=== PATIENT | male | born 1975 | race Caucasian/White ===

== ENCOUNTER 2021-10-01 14:23 | Inpatient (IN) | payer MEDICAID, SELFPAY ==
[2021-10-01 14:24] VITALS: BP 131/85; PULSE 55; RESP 14; TEMP 36.6; O2SAT 97; BMI 20.9
--- NOTE | 2021-10-01 14:45 | ED.RN ---
Educated patient that if he and his (in another room also here to detox) will not be able to have any contact with one another when admitted.
--- NOTE | 2021-10-01 15:00 | EDS_ITS ---
HPI History of Present Illness Chief Complaint: Substance Abuse Informant: patient and parent Narrative Narrative: 46-year-old male states he is coming to the hospital today requesting detox from opiates. He typically snorts heroin/fentanyl. He states that his mother has custody of their 4 children. His is also here seeking detox. He states that they were present up to about a year ago but he does not have any pending legal issues. He states that he has been working with [facility]. He last used approximately 48 hours ago. He was under the impression that he would go from here directly to inpatient but there appears to be a potential for 2-day gap and he is not sure if he wants to stay down. PFSH PFSH Allergy/AdvReac Type Severity Reaction Status Date / Time No Known Allergies Allergy Verified 10/01/21 14:26 Surgical History (Updated 10/01/21 @ 15:[address] Shelton Elizalde DO) History of back surgery History of neck surgery Social History (Updated 10/01/21 @ 15:[address] Shelton Elizalde DO) Smoking Status: Current every day smoker tobacco type: cigarettes substance use type: heroin ROS ROS ED Constitutional Constitutional ED: Denies chills or weight loss Eyes Eyes: Denies change in vision or diplopia ENT ENT ED: Denies ear pain, rhinorrhea or sore throat Cardiovascular Cardiovascular: Denies chest pain, orthopnea, palpitations or racing heartbeat Respiratory/Chest Respiratory/Chest: Denies cough, dyspnea or orthopnea Gastrointestinal Gastrointestinal: Denies abdominal pain, diarrhea, nausea or vomiting Genitourinary Genitourinary ED: Denies dysuria, hematuria or urinary frequency Musculoskeletal Musculoskeletal: Denies arthralgias or myalgias Integumentary Denies abscess or rash Neurologic Neurologic: Denies headache(s) or weakness Psychiatric Psychiatric: Denies anxiety, depression, suicidal ideation or suicidal thoughts Endocrine Endocrinology: Denies polydipsia, polyphagia or polyuria Allergic/Immunologic Allergic/Immunologic ED: Denies mouth swelling, tongue swelling or urticaria EXAM Physical Exam Const Vital Signs: 10/01/21 14:24 Temperature 97.8 F Temperature Source Temporal Pulse Rate 55 L Respiratory Rate 14 Blood Pressure 131/85 H Blood Pressure Mean 100 Pulse Ox 97 Oxygen Delivery Method Room Air Positive well nourished and well developed General Appearance ED: well developed HEENT Reports normocephalic, head/scalp atraumatic and moist mucous membranes Eyes PERRL and EOMs intact bilaterally Neck no lymphadenopathy, supple and no JVD Resp normal respiratory effort and clear to auscultation bilaterally Cardio regular rate, regular rhythm and no murmurs GI normal to inspection, nondistended, normoactive bowel sounds and non-tender Palpation: soft Back/Spine no CVA tenderness and normal ROM Extremity normal to inspection General Extremety ED: Negative for edema General Extremity: Negative for edema Neuro oriented x3 and CN's II-XII intact bilaterally Sensorium / Orientation: alert Motor Exam: strength 5/5 throughout Psych mental status grossly normal Mood & Affect: Negative for depressed or tearful Skin no rashes or lesions noted and no wounds MDM MDM MDM Narrative Medical decision making narrative: Patient decided that he will stay for detox. He decided this after he left his room and went to smoke a cigarette he was informed that he would not be going outside anymore and smoking that if he does not wish to stay in his room that somebody else who is in the waiting room would be happy to take his room. I will speak with the hospitalist regarding admission Lab Data Attestation: I reviewed the patient's lab results. Labs: Laboratory Results - last 24 hr 10/01/21 10/01/21 10/01/21 15:13 15:13 15:13 WBC 7.2 RBC 4.69 Hgb 13.3 Hct 41.7 MCV 88.9 MCH 28.4 MCHC 31.9 L RDW Std Deviation 43.8 RDW Coeff of Cece 13.6 Plt Count 213 MPV 10.0 Immature Gran % (Auto) 0.100 Neut % (Auto) 68.0 Lymph % (Auto) 23.5 [place] % (Auto) 7.0 Eos % (Auto) 0.8 Baso % (Auto) 0.6 Absolute Neuts (auto) 4.9 Absolute Lymphs (auto) 1.68 Nucleated RBC % 0 Sodium 139 Potassium 3.6 Chloride 106 Carbon Dioxide 31.0 Anion Gap 2 L BUN 13 Creatinine 0.98 Estim Creat Clear Calc 79.39 Est GFR (MDRD) Af Amer 106 Est GFR (MDRD) Non-Af 88 BUN/Creatinine Ratio 13.2 Glucose 119 H Calcium 9.1 Total Bilirubin 0.40 AST 53 H ALT 145 H Alkaline Phosphatase 73 Total Protein 7.2 Albumin 3.7 Globulin 3.5 Albumin/Globulin Ratio 1.1 Ethyl Alcohol 4.0 Discharge Plan Dx/Rx/DC Orders Clinical Impression: Opiate addiction Disposition Disposition: Acute Care Hospital [facility]
--- NOTE | 2021-10-01 15:16 | PCM.HP.STD ---
HPI - General General Date of Admission: 10/01/21 HPI Narrative VIANNEY DOTSON, is a 46 M who presents to the hospital requesting opiate detox. He denies injecting heroin but he does snort heroin and fentanyl. His last use was approximately 48 hours ago. He has been working with [facility] on an outpatient basis and he does seem interested in terms of going to an inpatient rehab once he completes detox. He denies any legal issues however his mother has custody of his 4 children and his is also here requesting detox currently. [facility] Allergy/AdvReac Type Severity Reaction Status Date / Time No Known Allergies Allergy Verified 10/01/21 14:26 Family History no significant family his no significant family history Surgical History (Updated 10/01/21 @ 15:[address] Shelton Elizalde DO) History of back surgery History of neck surgery Social History (Updated 10/01/21 @ 15:[address] Shelton Elizalde DO) Smoking Status: Current every day smoker tobacco type: cigarettes substance use type: heroin ROS Constitutional Constitutional: Denies chills, fatigue, fever(s) or malaise Eyes Eyes: Denies blurry vision ENT HEENT: Denies headache(s) or nasal discharge Cardiovascular Cardiovascular: Denies chest pain, dyspnea on exertion or syncope Respiratory/Chest Respiratory/Chest: Denies cough, shortness of breath at rest or shortness of breath with exertion Gastrointestinal Gastrointestinal: Denies constipation, diarrhea, nausea or vomiting Genitourinary Genitourinary: Denies dysuria Neurologic Neurologic: Denies focal weakness, numbness or tremor(s) Psychiatric Psychiatric: Denies anxiety or depression Vital Signs Vital Signs Vital Signs: 10/01/21 14:24 Temperature 97.8 F Temperature Source Temporal Pulse Rate 55 L Respiratory Rate 14 Blood Pressure 131/85 H Blood Pressure Mean 100 Pulse Ox 97 Oxygen Delivery Method Room Air Weight Weight: 130 lb Body Mass Index (BMI) 20.9 Physical Exam Narrative General: Alert, Oriented x3, Cooperative, No apparent distress HEENT: Atraumatic, PERRLA, EOMI, Normocephalic Oral: Moist Mucosa Neck: Supple, No JVD Lungs: Clear to auscultation, Normal air movement, No rhonchi, No wheeze, No rales Cardiovascular: Regular rate, Regular Rhythm, Normal S1, Normal S2, No murmurs Abdomen: Soft, Non Tender, Non-Distended, No Hepato-splenomegaly Extremities: No edema, Capillary Refill Less than 3 Seconds Skin: No rashes, No breakdown Musculoskeletal: No Tenderness to Palpation of Joints or Extremities Neurological: Cranial nerves II-XII grossly intact, Motor Exam 5/5 strength throughout, Sensory exam intact to light touch and pain Psych/Mental Status: Normal Affect, Appropriate Results Lab / Micro Data Result Diagrams: 10/01/21 15:13 10/01/21 15:13 Assessment & Plan Assessment/Plan (1) Opiate addiction: PLAN: Plan 1. Acute opiate withdrawal/tobacco abuse ? Continue with the opiate withdrawal protocol ? We will have him follow-up with [facility] for potential inpatient placement ? Discussed cessation, will place him on nicotine patch DVT: Ambulation Charges/Coding Visit Charges Inpatient E&M: 65114 Init Hosp L2
--- NOTE | 2021-10-01 15:22 | NURSING ---
MED SURG OPIATE ADDICTION LING
[2021-10-01 15:26] LABS: Absolute Lymphocyte Count 1.68 X10^3/uL (0.83-4.51); Absolute Neutrophil Count 4.9 X10^3/uL (2.0-7.7); Basophil# 0.04 X10^3/uL; Basophil% 0.6 % (0-1); Eosinophil# 0.06 X10^3/uL; Eosinophils% 0.8 % (0-5); Hematocrit 41.7 % (40-54); Hemoglobin 13.3 g/dL (13.0-16.5); Lymphocyte # 1.68 X10^3/ul (0.83-4.51); Lymphocyte % 23.5 % (19-41); Mean Corp Hgb Conc 31.9 g/dL (32-36); Mean Corpuscular Hgb 28.4 pg (27.0-32.0); Mean Corpuscular Volume 88.9 fL (80-94); NRBC Flagged by Analyzer 0 % (0-5); Neutrophil # 4.86 X10^3/uL (2.7-7.7); Platelet Count 213 K/mm3 (150-450); RBC Distribution Width CV 13.6 % (11.6-14.6); RBC Distribution Width SD 43.8 fl (35.1-43.9); Red Blood Count 4.69 M/mm3 (4.6-6.2); White Blood Count 7.2 K/mm3 (4.4-11.0)
[2021-10-01 15:39] VITALS: BP 131/85; PULSE 55; RESP 14; TEMP 36.6; O2SAT 97
[2021-10-01 15:44] LABS: ALB/GLOB Ratio 1.1 RATIO (0.9-2.4); AST(SGOT) 53 U/L (15-37); Alanine Aminotransfer ALT/SGPT 145 U/L (16-61); Albumin, Serum 3.7 g/dL (3.2-5.0); Alkaline Phosphatase 73 U/L (45-117); Anion Gap 2 (5-15); BUN 13 mg/dL (7-18); BUN/Creat Ratio 13.2 RATIO (10-20); Calcium,Total 9.1 mg/dL (8.5-10.1); Chloride 106 mmol/L (98-107); Creatinine, Serum 0.98 mg/dL (0.70-1.30); EST Glomerular Filtration Rate 88 mL/min (>60); Est Glom Filt Rate - Afr Amer 106 mL/min (>60); Estimated Creatinine Clearance 79.39 ml/min; Globulin 3.5 g/dL (2.2-4.2); Glucose 119 mg/dL (74-106); Potassium 3.6 mmol/L (3.5-5.1); Protein, Total 7.2 g/dL (6.4-8.2); Sodium Level 139 mmol/L (136-145)
[2021-10-01 16:17] LABS: Amphetamine Urine VISTA NEGATIVE (<1000 ng/mL); Barbiturate Urine VISTA NEGATIVE (< 200 ng/mL); Benzodiazepine Urine VISTA NEGATIVE (< 200 ng/mL); Cocaine Urine VISTA POSITIVE (< 300 ng/mL); Ecstacy Urine VISTA POSITIVE (< 500 ng/mL); Methadone Urine VISTA NEGATIVE (< 300 ng/mL); PCP Urine VISTA NEGATIVE (< 25 ng/mL); THC Urine VISTA POSITIVE (< 50 ng/mL); Vista UDS pH Range 4
[2021-10-01 17:04] VITALS: BMI 20.5
[2021-10-01 17:46] VITALS: PULSE 50; O2SAT 95
[2021-10-01 17:51] VITALS: BP 130/86; PULSE 48; RESP 16; TEMP 36.5; O2SAT 95
[2021-10-01 22:46] VITALS: BP 128/86; PULSE 52; RESP 16; TEMP 36.7; O2SAT 96
[2021-10-02 06:12] VITALS: BP 128/87; PULSE 56; RESP 16; TEMP 36.7; O2SAT 94
[2021-10-02] MEDS: Gabapentin 300 MG Capsule PO ×2 (09:56→17:50)
[2021-10-02] MEDS: Methocarbamol 750 MG Tablet 1500 MG PO ×2 (10:01→16:33)
[2021-10-02] MEDS: hydrOXYzine PAM 25 MG Capsule 50 MG PO ×2 (10:02→16:33)
[2021-10-02] MEDS: Buprenorphine HCl 2 MG TAB.SUBL SL ×2 (10:19→17:50)
[2021-10-02] MEDS: cloNIDine HCl 0.1 MG Tablet PO (14:31)
[2021-10-02 15:48] VITALS: BP 123/71; PULSE 81; RESP 16; TEMP 37.2; O2SAT 95
[2021-10-02 18:00] VITALS: BP 112/82; PULSE 76; RESP 16; TEMP 36.8; O2SAT 96
--- NOTE | 2021-10-02 18:28 | PCM.PN.HOSP ---
Subjective Subjective Patient was seen and examined today, he requested that his Neurontin be changed to 400 mg 3 times daily-he states he takes this dosage at home. Patient is having some muscle cramping, otherwise he has no complaints of any nausea, vomiting, or diarrhea. Objective Data Objective Data Vital Signs: Vital Signs Temp Pulse Resp BP Pulse Ox O2 Del Method 98.3 F 76 16 112/82 H 96 Room Air 10/02/21 18:00 10/02/21 18:00 10/02/21 18:00 10/02/21 18:00 10/02/21 18:00 10/02/21 18:00 Oxygen Delivery Method Room Air Weight: 57.606 kg Body Mass Index (BMI) 20.5 Intake & Output: Intake and Output for Last 24 Hours 09/30/21 10/01/21 10/02/21 23:59 23:59 23:59 Intake Total 200 / 200 360 / 360 Balance 200 / 200 360 / 360 Lab / Micro Data Result Diagrams: 10/01/21 15:13 10/01/21 15:13 Physical Exam Const alert, oriented x3, no apparent distress and healthy appearing General Appearance: cooperative, well kempt and well developed Orientation / Consciousness: awake, oriented to person, oriented to place and oriented to time HEENT normocephalic and moist oral mucous membranes Eyes PERRL, EOMs intact bilaterally and conjunctivae normal Neck supple, no JVD, thyroid normal and no carotid bruits General: trachea midline Resp normal respiratory effort, no retractions, no use of accessory muscles and clear to auscultation bilaterally Auscultation: Negative for rales, rhonchi or wheezes Cardio regular rate, regular rhythm, S1 normal heart sound, S2 normal heart sound, no murmurs, no rub and no gallops GI normal to inspection, nondistended, normoactive bowel sounds, soft to palpation, non-tender and non-distended Extremity normal to inspection and no clubbing, cyanosis or edema Skin no rashes or lesions noted General Skin Exam: no breakdown Neuro oriented x3, CN's II-XII intact bilaterally, moves all extremities, no focal motor deficits and no sensory deficits noted Sensorium / Orientation: awake, alert, oriented to person, oriented to place and oriented to time Speech: speech normal Psych affect normal Assessment & Plan Assessment/Plan (1) Opiate addiction: PLAN: Plan 1. Acute opiate withdrawal-continue present medications, as needed medications #2 restless legs-I will increase patient's Neurontin which she uses for restless legs #3 chronic opiate addiction-complicates recovery, care, and prognosis. Charges/Coding Visit Charges Inpatient E&M: 89363 Subs Hosp L2
[2021-10-02] MEDS: Gabapentin 100 MG Capsule PO (18:36)
[2021-10-02 22:11] VITALS: BP 109/74; PULSE 55; RESP 18; TEMP 36.6; O2SAT 95
[2021-10-03] MEDS: Buprenorphine HCl 2 MG TAB.SUBL SL ×3 (01:54→18:39)
[2021-10-03 04:30] VITALS: BP 99/65; PULSE 51; RESP 18; TEMP 36.6; O2SAT 95
[2021-10-03] MEDS: Gabapentin 400 MG Capsule PO ×3 (08:18→18:39)
[2021-10-03 08:25] VITALS: BP 121/84; PULSE 64; RESP 16; TEMP 36.7; O2SAT 98
[2021-10-03] MEDS: cloNIDine HCl 0.1 MG Tablet PO (10:21)
[2021-10-03] MEDS: Methocarbamol 750 MG Tablet 1500 MG PO (10:21)
[2021-10-03] MEDS: hydrOXYzine PAM 25 MG Capsule 50 MG PO (10:21)
[2021-10-03] MEDS: Acetaminophen 325 MG Tablet 650 MG PO (12:31)
--- NOTE | 2021-10-03 18:14 | PCM.PN.HOSP ---
Subjective Subjective Patient was seen and examined today, he appears comfortable, he is not anxious or tremorous. Patient states he is due to go into an inpatient detox center tomorrow after discharge from the hospital. Objective Data Objective Data Vital Signs: Vital Signs Temp Pulse Resp BP Pulse Ox O2 Del Method 98.0 F 64 16 121/84 H 98 Room Air 10/03/21 08:25 10/03/21 08:25 10/03/21 08:25 10/03/21 08:25 10/03/21 08:25 10/03/21 08:25 Oxygen Delivery Method Room Air Weight: 57.606 kg Body Mass Index (BMI) 20.5 Intake & Output: Intake and Output for Last 24 Hours 10/01/21 10/02/21 10/03/21 23:59 23:59 23:59 Intake Total 200 / 200 360 / 580 660 / 660 Balance 200 / 200 360 / 580 660 / 660 Lab / Micro Data Result Diagrams: 10/01/21 15:13 10/01/21 15:13 Physical Exam Narrative General: Alert, Oriented x3, Cooperative, No apparent distress HEENT: Atraumatic, PERRLA, EOMI, Normocephalic Oral: Moist Mucosa Neck: Supple, No JVD Lungs: Clear to auscultation, Normal air movement, No rhonchi, No wheeze, No rales Cardiovascular: Regular rate, Regular Rhythm, Normal S1, Normal S2, No murmurs Abdomen: Soft, Non Tender, Non-Distended, No Hepato-splenomegaly Extremities: No edema, Capillary Refill Less than 3 Seconds Skin: No rashes, No breakdown Musculoskeletal: No Tenderness to Palpation of Joints or Extremities Neurological: Cranial nerves II-XII grossly intact, Motor Exam 5/5 strength throughout, Sensory exam intact to light touch and pain Psych/Mental Status: Normal Affect, Appropriate Const alert, oriented x3, no apparent distress and healthy appearing General Appearance: cooperative, well kempt and well developed Orientation / Consciousness: awake, oriented to person, oriented to place and oriented to time HEENT normocephalic, head/scalp atraumatic and moist oral mucous membranes Eyes PERRL, EOMs intact bilaterally and conjunctivae normal Neck supple, no JVD, thyroid normal and no carotid bruits General: trachea midline Resp normal respiratory effort, no retractions, no use of accessory muscles and clear to auscultation bilaterally Auscultation: Negative for rales, rhonchi or wheezes Cardio regular rate, regular rhythm, S1 normal heart sound, S2 normal heart sound, no murmurs, no rub and no gallops GI normal to inspection, nondistended, normoactive bowel sounds, soft to palpation, non-tender and non-distended Extremity no clubbing, cyanosis or edema Skin no rashes or lesions noted General Skin Exam: no breakdown Neuro oriented x3, CN's II-XII intact bilaterally, no focal motor deficits and no sensory deficits noted Sensorium / Orientation: awake and alert Speech: speech normal Psych affect normal Assessment & Plan Assessment/Plan (1) Opiate addiction: PLAN: Plan 1. Acute opiate withdrawal-continue present medications, as needed medications #2 restless legs-patient is on Neurontin #3 chronic opiate addiction-complicates recovery, care, and prognosis. Charges/Coding Visit Charges Inpatient E&M: 42879 Subs Hosp L2
[2021-10-03 18:38] VITALS: BP 99/67; PULSE 56; RESP 18; TEMP 37.1; O2SAT 98
[2021-10-03 22:17] VITALS: BP 96/56; PULSE 56; RESP 16; TEMP 36.8; O2SAT 97
[2021-10-04] MEDS: Buprenorphine HCl 2 MG TAB.SUBL SL ×2 (02:01→08:34)
[2021-10-04 02:11] VITALS: BP 99/65; PULSE 64; RESP 16; TEMP 36.7; O2SAT 96
[2021-10-04 08:10] VITALS: BP 113/69; PULSE 61; RESP 14; TEMP 36.8; O2SAT 97
--- NOTE | 2021-10-04 08:17 | DCINST_ITS ---
Discharge Instructions Diet Discharge Diet: No restrictions Activity Discharge Activity: Return to Normal Activity Weight Bearing Status: Full weight bearing Follow Up Care Test Results: Test results from this visit will be discussed in further detail at your follow- up appointment, if applicable. Discharge Plan Admission Admit Date/Time: 10/01/21 15:14 Primary Reason for Your Visit: opiate detox/withdrawal Attending Provider: Osiel Proctor Primary Care Provider: Care Physician,No Primary Consulting Providers: Felix Pina Discharge Orders/Prescriptions Prescriptions: Continued gabapentin 400 mg capsule 400 mg PO TID Label Comments: TAKE 1 CAPSULE BY MOUTH THREE TIMES A DAY Referrals / Follow Up: Care Physician,No Primary [Primary Care Provider] - NOT,DEFINED [NON-STAFF] - Disposition Disposition (needs filled in before D/C Order can be placed): Inpatient Rehab Unit/Facility
--- NOTE | 2021-10-04 08:18 | DS.PCM_ITS ---
Providers Date of Admission: 10/01/21 Date of Discharge: 10/04/21 Primary Care Physician: No Primary Care Phys Reason For Visit: OPIATE DETOX Diagnosis Discharge Diagnosis (1) Opiate addiction: Status: Acute Code(s): F11.20 - Opioid dependence, uncomplicated Plan 1. Acute opiate withdrawal-continue present medications, as needed medications #2 restless legs-patient is on Neurontin #3 chronic opiate addiction-complicates recovery, care, and prognosis. Medications at Discharge Home Medications gabapentin 400 mg capsule 400 mg PO TID LEG PAIN 10/01/21 Hospital Course Operations None Procedures None Summary of Care Provided Minutes Spent on Discharge: 31 Hospital Course: This 46-year-old white male was seen in the emergency room at [facility] requesting services for detox from opiates. Patient states he typically snorts heroin and fentanyl. Patient was admitted to [place] [id number], he was seen in consultation by addiction social service assistant and the patient agreed to go to an inpatient detox facility at the time of discharge from the hospital. Patient had no untoward events during his hospitalization. On 10/04/2021, patient was seen and examined: On examination he appeared in good health and spirits. Vital signs as documented. Skin warm and dry and without overt rashes. Neck without JVD, neck was supple, trachea midline, thyroid was normal. Lungs clear bilaterally, normal air movement was noted. Heart exam notable for regular rhythm, normal sounds and absence of murmurs, rubs or gallops. Abdomen unremarkable and without evidence of organomegaly, masses, or abdominal aortic enlargement. Bowel sounds are present, abdomen is not distended. Extremities nonedematous, no cyanosis was noted, no clubbing was noted. Neuro: Cranial nerves II through XII are grossly intact, no focal motor deficits were noted, sensation to light touch and pinprick intact, motor exam 5/5 throughout. Psych: Patient is alert and oriented x3, he does not appear anxious or depressed, he does not appear agitated. On 10/04/2021, patient appears stable for discharge to an inpatient detox facility. Weight / BMI Weight Weight: 57.606 kg Body Mass Index (BMI) 20.5 ABG / Lab / Microbiology Data Result Diagrams: 10/01/21 15:13 10/01/21 15:13 D/C Instructions Discharge Diet: No restrictions Weight Bearing Status: Full weight bearing Meaningful Use Info Meaningful Use Diagnoses (Choose all that apply): None applicable Discharge Plan Admission Admit Date/Time: 10/01/21 15:14 Primary Reason for Your Visit: opiate detox/withdrawal Attending Provider: Osiel Proctor Primary Care Provider: Darby Gross NP Consulting Providers: Felix Pina Discharge Orders/Prescriptions Prescriptions: Continued gabapentin 400 mg capsule 400 mg PO TID Label Comments: TAKE 1 CAPSULE BY MOUTH THREE TIMES A DAY Referrals / Follow Up: Care Physician,No Primary [NON-STAFF] - NOT,DEFINED [NON-STAFF] - Disposition Disposition (needs filled in before D/C Order can be placed): Inpatient Rehab Unit/Facility Charges/Coding Visit Charges Inpatient E&M: 99920 Disch Hosp
[2021-10-04] MEDS: Gabapentin 400 MG Capsule PO (08:33)
--- NOTE | 2021-10-04 09:54 | ADDICTION ---
Pt has been approved for residential treatment. He will be placed at [facility] on 10/04/21. [facility] will provide transportation. They will arrive at 10:15. They will call once they arrive.
== END 2021-10-04 10:37 | DRG 772 ==
LOC: ED 15:18 → MS3 16:07
PROVIDERS: Admitting Provider Family Medicine; Emergency Provider Emergency Medicine; PCP Nurse Practitioner Primary Care; Visit Provider Internal Medicine
DX: F11.23 Opioid dependence with withdrawal (principal); F17.210 Nicotine dependence, cigarettes, uncomplicated; G25.81 Restless legs syndrome; Z79.899 Other long term (current) drug therapy
CPT/HCPCS: 36415; 80053; 80307; 82077; 85025; 99281; 99282

== ENCOUNTER 2024-06-14 15:48 | Emergency (ER) | payer MEDICAID, SELFPAY ==
[2024-06-14 15:49] VITALS: BP 100/89; PULSE 114; RESP 18; TEMP 36.6; O2SAT 97; BMI 19.8
--- NOTE | 2024-06-14 18:07 | ED.RN ---
called for pt to come back to room- did not answer.
== END 2024-06-14 18:05 | disposition left against medical advice (07) ==
LOC: ED 18:16
PROVIDERS: PCP Nurse Practitioner Primary Care
DX: Z53.21 Procedure and treatment not carried out due to patient leaving prior to being seen by health care provider (principal)